=== PATIENT | male | born 1995 | race African-American/Black ===

== ENCOUNTER 2019-05-02 02:15 | Emergency (ER) | payer MEDICAID ==
[~2019-05-02] VITALS: Ht 185.4 cm; Wt 84.0 kg
[2019-05-02] MEDS ORDERED: SODIUM CHLORIDE 0.9% 1,000 ML IV ONE ×2 (04:30→05:45)
[2019-05-02 06:21] VITALS: BP 138/96
== END 2019-05-02 06:46 | disposition home or self-care (01) ==
LOC: ER 02:15
DX: F15.180 Other stimulant abuse with stimulant-induced anxiety disorder (principal); F14.10 Cocaine abuse, uncomplicated; F12.10 Cannabis abuse, uncomplicated; F19.10 Other psychoactive substance abuse, uncomplicated
CPT/HCPCS: 71045; 93005; 99284; J7030